=== PATIENT | female | born 1975 | race African-American/Black ===

== ENCOUNTER 2016-08-22 19:10 | Emergency (ER) | payer OTHER ==
[~2016-08-22] VITALS: Ht 175.3 cm; Wt 126.4 kg
[~2016-08-22 19:10] MED LIST: HYDR50CA PO; IBUP800T28 PO; LOVA10TA PO; METF10002 PO; METH750T3 PO; PROP120C2 PO; VENL75TA3 PO
[2016-08-22 19:22] VITALS: BP 177/113; PULSE 110; RESP 16; O2SAT 96
[2016-08-22 20:56] LABS: BASOPHILS % (AUTO) 0.1 % (0-3); EOSINOPHILS % (AUTO) 1.3 % (0-5); MONOCYTES % (AUTO) 6.7 % (4-12); Mean Corpuscular Hemoglobin 30.4 pg (27.0-35.0); Mean Corpuscular Volume 92.5 fL (81-100); Platelet Count 310 bil/L (150-400)
[2016-08-22 21:11] LABS: Magnesium 1.9 mg/dL (1.6-2.6)
--- NOTE | 2016-08-22 21:32 | ED.REPORT ---
HPI-Abd Pain F 40 and Over Date of Service Aug 22, 2016 ED Provider: Bladimir Cardona MD A 40 year old female with a history of high cholesterol, diabetes, hypertension , kidney and bladder infection, and hysterectomy presents to the ED complaining of "stabbing" bilateral flank pain that radiates into her left abdomen. The pain has been present for three days. She believes that the pain is related to her kidneys, and possibly her diabetes, but it is different from pain that she felt with her previous kidney infection several years ago. The pt has been drinking fluids frequently in an attempt to remain hydrated, but this has not helped to relieve her symptoms. The pain is only relieved by laying on her side. The pt denies fever, nausea, vomiting, dysuria, urinary urgency, or urinary frequency. She also denies any history of kidney stone. She has been taking ibuprofen, the last dose of which was at 14:00 today. Nursing Notes Stated Complaint: BACK PAIN Chief Complaint: Female Abdominal Pain Nursing Notes Reviewed: Yes (LIFX not reconciled) Allergies: Coded Allergies: theophylline (Verified Allergy, Severe, 09/11/15) Scheduled Lovastatin (Lovastatin) 10 Mg Tablet 10 MG PO HS Metformin (Metformin) 1,000 Mg Tablet 1,000 MG PO BIDWM Sulfamethoxazole/Trimeth 800-160 mg (Bactrim DS 800-160 mg) 1 Each Tablet 1 TABLET PO BID Venlafaxine (Venlafaxine) 75 Mg Tablet 75 MG PO DAILY Scheduled PRN Hydroxyzine Pamoate (Vistaril) 50 Mg Capsule 50 MG PO TID PRN PRN For Anxiety Ibuprofen (Ibuprofen) 800 Mg Tablet 800 MG PO QID PRN PRN For Pain Methocarbamol (Methocarbamol) 750 Mg Tablet 750 MG PO TID PRN PRN For Spasm Miscellaneous Medications Propranolol ER (Propranolol ER) 120 Mg Cap.sa.24h 120 MG PO General Time Seen by MD: 21:31 Chief Complaint Other (Bilateral flank pain) Hx Obtained From: Patient Arrived By: Walk-in Sudden in Onset?: No Onset Occurred: 3 days ago Symptom Duration: Since onset Recent Healthcare: No recent doctor visit, No recent hospitalization Similar Sx Previous: Yes Past Medical History Past Medical History Chronic pain High cholesterol Kidney/bladder infection Reports: Diabetes mellitus, Hypertension Past Surgical History No history of abdominal surgery Reports: Hysterectomy Reports: Tubal ligation Smoking History Current Every Day Smoker, Heavy Tobacco Smoker Social History Alcohol Use: Denies alcohol use Other Social History: Good social support Ambulatory Status Independent Review of Systems Constitutional: Denies: Chills, Fever Respiratory: Denies: Non-productive cough, Shortness of breath Cardiovascular: Denies: Chest pain GI: Reports: Abdominal pain, Denies: Nausea, Vomiting Female: Reports: Flank pain, Denies: Dysuria, Urinary frequency, Urinary urgency Musculoskeletal: Denies: Neck pain Complete sys rev & neg: except as marked. Physical Exam Vital Signs Vital Signs (First) Date Time Temp Pulse Resp B/P Pulse Ox O2 Delivery O2 Flow Rate FiO2 08/22/16 19:22 36.6 110 16 177/113 96 Room Air Initial VS: Reviewed, Vital signs abnormal (HTN) General/Constitutional: Awake, Alert moderate colicky discomfort Respiratory / Chest: Atraumatic, Breath sounds NL, Breath sounds = bilat, No respiratory distress Cardiovascular: Heart rate NL, Regular rhythm, Heart sounds NL Abdomen: Atraumatic, Soft, Non-tender Back: Atraumatic, Full range of motion Head / Eyes: Atraumatic, Normocephalic, PERRL, EOMI ENT: Atraumatic, Airway patent, Mucous membranes moist Skin: Atraumatic, Color NL, No rash, Warm, Dry Neurologic: Oriented X3, Speech NL, No motor deficits, No sensory deficits Neck: Atraumatic, Supple, Full range of motion Upper Extremity / MS: Atraumatic, Full range of motion Lower Extremity / Pelvis / MS: Atraumatic, Full range of motion Psychiatric: Affect NL, Mood NL Interpretation & Diagnostics Lab Results Interpretation Result Diagram: 08/22/16204208/22/162042 Test 08/22/16 20:43 08/22/16 22:01 White Blood Count 8.9th/mm3 (3.8-10.1) Red Blood Count 4.80mil/mm3 (3.90-5.20) Hemoglobin 14.6g/dL (12.0-15.6) Hematocrit 44.4% (35.0-46.0) Mean Corpuscular Volume 92.5fL (81-100) Mean Corpuscular Hemoglobin 30.4pg (27.0-35.0) Mean Corpuscular Hemoglobin Concent 32.9% (32.0-37.0) Red Cell Distribution Width 13.9% (12.3-15.4) Platelet Count 310bil/L (150-400) Neutrophils (%) (Auto) 62.0% (40-74) Lymphocytes (%) (Auto) 29.7% (14-46) Monocytes (%) (Auto) 6.7% (4-12) Eosinophils (%) (Auto) 1.3% (0-5) Basophils (%) (Auto) 0.1% (0-3) Sodium Level 139mEq/L (134-144) Potassium Level 3.8mEq/L (3.5-5.2) Chloride Level 99mEq/L (97-108) Carbon Dioxide Level 30mmol/L (18-29) Blood Urea Nitrogen 6mg/dL (6-24) Creatinine 0.62mg/dL (0.57-1.00) Estimat Glomerular Filtration Rate 136mL/min (>59) Glucose Level 183mg/dL (60-99) Calcium Level 9.0mg/dL (8.5-10.1) Magnesium Level 1.9mg/dL (1.6-2.6) Total Bilirubin 0.2mg/dL (0.0-1.2) Aspartate Amino Transf (AST/SGOT) 14U/L (0-50) Alanine Aminotransferase (ALT/SGPT) 11U/L (0-32) Alkaline Phosphatase 69U/L (25-150) Total Protein 7.1g/dL (6.4-8.4) Albumin 3.7g/dL (3.4-5.0) Lipase 38U/L (13-60) Hold Castellon Top Tube Received (Received) Urine Color Dark yellow (YELLOW) Urine Appearance Slightly cloudy Urine pH 8.0 (5.0-8.0) Urine Specific Harvel 1.020 (1.003-1.035) Urine Protein Negativemg/dL (NEG,TRACE) Urine Glucose (UA) Negativemg/dL (NEGATIVE) Urine Ketones Negativemg/dL (NEGATIVE) Urine Occult Blood Negative (NEGATIVE) Urine Nitrite Negative (NEGATIVE) Urine Bilirubin Negative (NEGATIVE) Urine Urobilinogen Normalmg/dL (NORMAL) Urine Leukocyte Esterase Negative (NEGATIVE) Urine RBC 0-2/hpf (0-2) Urine WBC 6-10/hpf (0-5) Urine Epithelial Cells Many/hpf (NONE-MOD) Urine Crystals None seen (NONE SEEN) Urine Bacteria Few/hpf (NONE-FEW) Urine Hyaline Casts None/lpf (NONE) Urine Granular Casts None seen (NONE SEEN) Urine Waxy Casts None seen (NONE SEEN) Urine Red Blood Cell Casts None seen (NONE SEEN) Urine White Blood Cell Casts None seen (NONE SEEN) Urine Mucus Present (None Seen) Urine Trichomonas None seen (NONE SEEN) Urine Yeast None (NONE SEEN) Urine Culture Reflexed Indicated Lab Results Interpretation: CBC normal medicine and CMP normal negative U/a few white cells, few bacteria CT Abd / Pelvis Interpretation IMPRESSION: No acute findings evident. Non-emergent incidental findings as noted. Interpretation / Wet Read by: Interpret - Radiologist Re-Eval/Medical Decision Med Decision/Clinical Course This is a 40-year-old female who does not have a prior history of kidney since presents with severe flank pain worse on the right and she is worried about her kidneys. She has terrible pain in her kidneys, it is semi-colicky, and she reports a slightly different than when she has had a kidney infection in the past. She denies erika dysuria, denies fevers chills nausea vomiting. Her comfortable, but is afebrile and nontoxic. Her abdomen is soft nontender. She is very hypertensive but has no palpable abdominal aortic mass. The is negative, urine is underwhelming although she is concerned about infection. A CT KUB was negative for pathology. Ancef stone, no evidence of AAA. Patient received a dose of Percocet as improved. She still concerned about infection she does have a few white cells, and given this I have recommended empiric treatment Bactrim awaiting culture. Patient is discharged in good condition. Routine precautions reviewed. Source of Hx: Old records Re-Evaluation/Progress : Time of Eval: 00:32 Patient Status: Condition improved Re-Evaluation/Progress Note: Pt rechecked, whose condition has improved. Lab results, diagnosis, and the plan for discharge are discussed. The pt understands and agrees with the plan. All questions are addressed at this time. Differential Diagnosis: Negative: Abdominal aortic aneurysm, Bladder outlet obstruct, Bowel obstruction, Ectopic preg ruptured, Ectopic , Esophageal rupture, Gun shot wound abdomen, Pancreatitis, Peritonitis, Pyelonephritis, Stab wound abdomen, Urolithiasis, Volvulus Counseled Regarding: Diagnosis, Lab results, Need for follow-up, When/why to return to ED Discharge & Departure Primary Impression: Acute flank pain Additional Impression: UTI (urinary tract infection) Urinary tract infection type: acute cystitis Hematuria presence: without hematuria Qualified Code: N30.00 - Acute cystitis without hematuria Disposition: Home Discharge Condition All VS Reviewed: Yes Condition: Stable Additional Instructions: 1. A definitive or dangerous cause of the pain was not identified. 2. Your CT scan and blood work were normal. 3. Her urine does have a few white cells and a couple bacteria-so an infection is possible, however usually with a clear infection there are lots of markers and it is very obvious, and it is not uncommon to have a few white cells or bacteria as a contaminant. 4. However given her symptoms it is reasonable to treat with antibiotics. 5. Take the antibiotic trimethoprim sulfa 1 tablet twice a day for 5 days. 6. Continue ibuprofen. 7. If needed for more severe pain take the oxycodone. Use sparingly. Note: This medication contains a narcotic and causes drowsiness. No driving for at least 4-6 hours after taking. 8. Follow-up with your regular doctor if not improving after 2-3 days. 9. Return to the emergency department if new or worsening symptoms occur. Referrals: Paula Whitmore (PCP) Fatoumata Attestation Portions of this note were transcribed by Maia Kramer. I, Dr. Cardona personally performed the history, physical exam and medical decision-making; I reviewed and confirmed the accuracy of the information in the transcribed note. Signed by: Fatoumata Torrez, 08/23/2016, 00:37 copies to: Paula Whitmore Matthew F MD Aug 22, 2016 21:32 MAIA KRAMER Aug 22, 2016 22:25
[2016-08-22] MEDS ORDERED: oxyCODONE-Acetamin 5-325 mg Tablet PO ONE (21:40)
[2016-08-22 21:51] VITALS: BP 151/98; PULSE 82; O2SAT 96
[2016-08-22 22:36] LABS: APPEARANCE,URINE SLIGHTLY CLOUDY (CLEAR,HAZY); COLOR,URINE DARK YELLOW (YELLOW); OCCULT BLOOD,URINE NEGATIVE (NEGATIVE); UROBILINOGEN,URINE NORMAL (NORMAL)
[2016-08-22] MEDS ORDERED: _oxyCODONE/APAP 5-325 mg Tablet PO PRN (22:45)
[2016-08-22 23:28] VITALS: BP 133/97; PULSE 82; O2SAT 94
[2016-08-23] MEDS ORDERED: Trimethoprim-Sulfa 160 mg-800 mg Tablet PO ONE (00:35)
[2016-08-23] MEDS ORDERED: SULF1TAB35 PO (00:37)
[2016-08-23 01:05] VITALS: BP 134/82; PULSE 88; RESP 20; O2SAT 98
--- NOTE | 2016-08-23 09:40 | DRSVH ---
PROCEDURE: CT KUB ([id number]) INDICATIONS: Flank Pain TECHNIQUE: Noncontrast 5 mm thick sections acquired from the diaphragms to the symphysis. 5 mm thick coronal an d sagittal reformats were then performed. For radiation dose reduction, the following was used: aut omated exposure control, adjustment of mA and/or kV according to patient size. COMPARISON: [facility], CT, ABD/PELVIS W/CON (PNL), 09/22/2010, 20:14. FINDINGS: Image quality: Excellent. Lung bases: Lung bases are clear. Heart size is normal. Urinary system: Both kidneys are normal in size. No kidney stones. No hydronephrosis or perinephri c fat stranding. Both ureters appear non-dilated throughout their expected courses. Bladder wall th ickness is normal; no calcified bladder stones. Other solid organs: Liver and spleen are normal in size. Gallbladder appears within normal limits w ithout calcified gallstones. Pancreas is normal in contours. No adrenal nodules. Peritoneum and bowel: Unenhanced bowel loops demonstrate normal wall thickness and caliber. No free fluid or air. Nodes and vessels: No retroperitoneal or mesenteric adenopathy by size criteria. Aorta and inferior vena cava are normal in caliber. Abdominal wall: No ventral hernias. Pelvis: The uterus is surgically absent. No free pelvic fluid. No inguinal hernias or adenopathy. Bones: No suspicious bony lesions. No vertebral body compression fractures. IMPRESSION: 1. No definite acute intra-abdominal abnormality. Specifically, no evidence of nephrolithiasis or o bstructive uropathy. Dictated by: Jas Leblanc M.D. on 08/23/2016 at 9:38 Approved by: Jas Leblanc M.D. on 08/23/2016 at 9:38
== END 2016-08-23 01:06 | disposition home or self-care (01) ==
LOC: SED 19:10
DX: N30.00 Acute cystitis without hematuria (principal); E11.9 Type 2 diabetes mellitus without complications; I10 Essential (primary) hypertension; F17.210 Nicotine dependence, cigarettes, uncomplicated; Z79.84 Long term (current) use of oral hypoglycemic drugs; Z88.8 Allergy status to other drugs, medicaments and biological substances